=== PATIENT | female | born 1995 | race Caucasian/White ===

== ENCOUNTER 2023-08-13 16:50 | Emergency (ER) | payer OTHER, SELFPAY ==
[2023-08-13 16:55] VITALS: BP 145/99; PULSE 103; RESP 18; TEMP 36.9; O2SAT 100; BMI 21.3
--- NOTE | 2023-08-13 17:03 | ECG_ITS ---
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
--- NOTE | 2023-08-13 17:07 | CT_ITS ---
The [address] [address] Patient Name: STANISLAW ELIZABETH MRN: [id number] date: 1995 Sex: F Assigned Patient Location: ER Current Patient Location: ER Accession/Order Number: [id number] Exam Date: 08/13/2023 17:33 Report Date: 08/13/2023 17:45 At the request of: KATY PRATT Procedure: CT head/brain wo con EXAM: CT head/brain wo con HISTORY: Dizziness COMPARISON: None. TECHNIQUE: Axial CT scans through the head were obtained without IV contrast administration. Dose reduction techniques were achieved by using: automated exposure control and/or adjustment of mA and /or kV according to patient size and/or use of iterative reconstruction technique. FINDINGS: There is no acute intracranial hemorrhage or abnormal extra-axial fluid collection. No mass effect or midline shift is seen. There is no evidence of large acute territorial infarction. There is no hydrocephalus. To the limit of CT, the posterior fossa appears unremarkable. The calvaria and extra cranial soft tissues are unremarkable. The visualized orbits show no abnormal mass. The visualized paranasal sinuses show no air-fluid level. Mastoid air cells are clear. CT/CT head/brain wo con IMPRESSION: Unremarkable CT brain performed without contrast. Electronically authenticated by: RENAY TREVIÑO Date: 08/13/2023 17:45
--- NOTE | 2023-08-13 17:07 | ED_ITS ---
HPI - Dizziness General Chief Complaint: Dizziness Stated Complaint: DIZZNESS Time Seen by Provider: 08/13/23 17:02 Source: patient Mode of arrival: Wheelchair Limitations: no limitations History of Present Illness HPI Narrative: patient is a 28-year-old female presents to the emergency department for the evaluation of lightheadedness that began yesterday. Patient states she was at work today when she felt lightheaded as though she may pass out and got very nauseous. She has not had any loss of vision, peripheral paresthesias, vomiting or diarrhea. No recent flulike illness. She is not concerned for . No medications taken prior to arrival. She denies any sensation of spinning. Related Data Home Medications Medication Instructions Recorded Confirmed dextroamphetamine-amphetamine 10 10 mg PO DAILY 08/13/23 08/13/23 mg tablet Previous Rx's Medication Instructions Recorded ondansetron 4 mg disintegrating 4 mg PO Q6H PRN nausea and 08/13/23 tablet vomiting #12 tabs Allergies Allergy/AdvReac Type Severity Reaction Status Date / Time No Known Drug Allergies Allergy Verified 08/13/23 17:01 Review of Systems ROS Constitutional Denies: fever or chills Ears, nose, mouth, and throat Denies: throat pain or nasal congestion Cardiovascular Denies: chest pain Respiratory Denies: shortness of breath or cough Gastrointestinal Reports: nausea; Denies: vomiting or diarrhea Genitourinary Denies: painful urination Musculoskeletal Denies: back pain Integumentary/Breast Denies: rash Neurological Reports: dizziness; Denies: headache, numbness in extremities or weakness in extremities Hematologic/Lymphatic Denies: easy bruising Exam Narrative Exam Narrative: Gen.: Awake, alert, in no distress Head: Normocephalic, atraumatic ENT: Moist mucous membranes; bilateral tympanic membranes clear, no pharyngeal erythema Respiratory: No respiratory distress, lungs clear bilaterally Cardio: Regular rate and rhythm Gastrointestinal: Abdomen is soft, nondistended and nontender to palpation Extremities: Moves extremities equally, no injuries noted Psych: Normal mood and affect Neuro: No focal neuro deficit Skin: Warm, dry, intact Constitutional Vital Signs, click to edit/add: Last Vital Signs Temp 98.5 F 08/13/23 16:55 Pulse 103 H 08/13/23 16:55 Resp 18 08/13/23 16:55 BP 145/99 H 08/13/23 16:55 Pulse Ox 100 08/13/23 16:55 O2 Del Method Room Air 08/13/23 16:55 Course Vital Signs Vital signs: Vital Signs Temperature 98.5 F 08/13/23 16:55 Pulse Rate 103 H 08/13/23 16:55 Respiratory Rate 18 08/13/23 16:55 Blood Pressure 145/99 H 08/13/23 16:55 Pulse Oximetry 100 08/13/23 16:55 Oxygen Delivery Method Room Air 08/13/23 16:55 Temperature 98.5 F 08/13/23 16:55 Pulse Rate 103 H 08/13/23 16:55 Respiratory Rate 18 08/13/23 16:55 Blood Pressure 145/99 H 08/13/23 16:55 Pulse Oximetry 100 08/13/23 16:55 Oxygen Delivery Method Room Air 08/13/23 16:55 MDM - Dizziness MDM Narrative Medical decision making narrative: patient was treated with IV fluids, Zofran. CT of the brain is unremarkable and lab studies are also unremarkable. vital signs are normal in the Emergency Room. Patient is discharged home with a prescription for Zofran, increase fluids and follow-up with PCP. Return to the Emergency Room if symptoms change or worsen. Medical Records Attestation: I reviewed the patient's medical records. Lab Data Attestation: I reviewed the patient's lab results. Labs: Lab Results 08/13/23 Range/Units 17:10 WBC 8.8 (4.0-11.0) 10^3/uL RBC 4.35 (4.20-5.40) 10^6/uL Hgb 13.3 (12.0-16.0) g/dL Hct 39.2 (36.0-48.0) % MCV 90.1 (81.0-99.0) fL MCH 30.6 (26.7-34.0) pg MCHC 33.9 (29.9-35.2) g/dL RDW 11.8 (11.0-15.0) % Plt Count 276 (150-450) 10^3/uL MPV 10.1 (9.5-13.5) fL Neut % (Auto) 54.6 (43.0-75.0) % Lymph % (Auto) 36.7 (20.5-60.0) % [place] % (Auto) 6.0 (1.7-12.0) % Eos % (Auto) 1.8 (0.9-7.0) % Baso % (Auto) 0.8 (0.2-2.0) % Neut # (Auto) 4.8 (1.4-6.5) 10^3/uL Lymph # (Auto) 3.2 (1.2-3.8) 10^3/uL [place] # (Auto) 0.5 (0.3-0.8) 10^3/uL Eos # (Auto) 0.2 (0.0-0.7) 10^3/uL Baso # (Auto) 0.1 (0.0-0.1) 10^3/uL Abs Immat Gran (auto) 0.01 (0.00-0.03) 10^3/uL Imm/Tot Granulo (auto) 0.1 (0.0-0.5) % Sodium 135 L (136-145) mmol/L Potassium 3.4 L (3.5-5.1) mmol/L Chloride 102 (98-107) mmol/L Carbon Dioxide 27.4 (21.0-32.0) mmol/L Anion Gap 9.0 BUN 12.0 (7.0-18.0) mg/dL Creatinine 0.76 (0.55-1.02) mg/dL Est GFR ( Amer) >60 (>=60) Est GFR (Non-Af Amer) >60 (>=60) BUN/Creatinine Ratio 15.8 Glucose 95 (74-106) mg/dL Calcium 9.0 (8.5-10.1) mg/dL Total Bilirubin 0.2 (0.2-1.0) mg/dL AST 9 L (15-37) U/L ALT 12 L (14-59) U/L Alkaline Phosphatase 61 (46-116) U/L Total Protein 7.9 (6.4-8.2) g/dL Albumin 3.7 (3.4-5.0) g/dL Globulin 4.2 g/dL Albumin/Globulin Ratio 0.9 TSH 2.246 (0.358-3.740) uIU/mL Serum HCG, Qual Negative (NEGATIVE) Urine Color Lt. yellow (YELLOW) Urine Clarity Clear (CLEAR) Urine pH 7.0 (5.0-9.0) Ur Specific [place] 1.010 (1.005-1.025) Urine Protein Negative (NEG/TRACE) mg/dL Urine Glucose (UA) Negative (NEGATIVE) mg/dL Urine Ketones Negative (NEGATIVE) mg/dL Urine Occult Blood Negative (NEGATIVE) Urine Nitrite Negative (NEGATIVE) Urine Bilirubin Negative (NEGATIVE) Urine Urobilinogen 0.2 (0.2-1.0) EU/dL Ur Leukocyte Esterase Negative (NEGATIVE) Imaging Data CT scan - head: Attestation: I have reviewed the pertinent imaging results. Radiologist's impression: Procedure: CT head/brain wo con EXAM: CT head/brain wo con HISTORY: Dizziness COMPARISON: None. TECHNIQUE: Axial CT scans through the head were obtained without IV contrast administration. Dose reduction techniques were achieved by using: automated exposure control and/or adjustment of mA and /or kV according to patient size and/or use of iterative reconstruction technique. FINDINGS: There is no acute intracranial hemorrhage or abnormal extra-axial fluid collection. No mass effect or midline shift is seen. There is no evidence of large acute territorial infarction. There is no hydrocephalus. To the limit of CT, the posterior fossa appears unremarkable. The calvaria and extra cranial soft tissues are unremarkable. The visualized orbits show no abnormal mass. The visualized paranasal sinuses show no air-fluid level. Mastoid air cells are clear. IMPRESSION: Unremarkable CT brain performed without contrast. Electronically authenticated by: RENAY OVALLEU Date: 08/13/2023 17:45 ECG Data Attestation: I personally reviewed and interpreted this ECG as follows: (normal sinus rhythm at a rate of ninety-six, no acute ST elevation or ectopy. EKG reviewed by attending physician) ECG interpretation date: 08/13/23 Discharge Plan Discharge Chief Complaint: Dizziness Clinical Impression: Lightheadedness, Nausea Patient Disposition: Home, Self-Care Time of Disposition Decision: 18:21 Condition: Good Prescriptions / Home Meds: New ondansetron 4 mg tablet,disintegrating 4 mg PO Q6H PRN (Reason: nausea and vomiting) Qty: 12 0RF No Action dextroamphetamine-amphetamine 10 mg tablet 10 mg PO DAILY Instructions: Lightheadedness (ED) Stand Alone Forms: Portal Instructions Referrals: Physician,Non-Staff, MD [Primary Care Provider] - 1 week
[2023-08-13] MEDS: 0.9 % SODIUM CHLORIDE 1,000 ML 999 ML IV (17:16)
[2023-08-13] MEDS: ONDANSETRON PF 4 MG/2 ML VIAL IV (17:16)
[2023-08-13 17:20] VITALS: PULSE 89; RESP 18
[2023-08-13 17:26] LABS: Basophils Absolute Auto 0.1 10^3/uL (0.0-0.1); Basophils Percent Auto 0.8 % (0.2-2.0); Eosinophils Absolute Auto 0.2 10^3/uL (0.0-0.7); Eosinophils Percent Auto 1.8 % (0.9-7.0); Hematocrit 39.2 % (36.0-48.0); Hemoglobin 13.3 g/dL (12.0-16.0); Immature Granulocytes Abs Auto 0.01 10^3/uL (0.00-0.03); Immature Granulocytes Pct Auto 0.1 % (0.0-0.5); Lymphocytes Absolute Auto 3.2 10^3/uL (1.2-3.8); Lymphocytes Percent Auto 36.7 % (20.5-60.0); Mean Corpuscular HGB Conc 33.9 g/dL (29.9-35.2); Mean Corpuscular Hemoglobin 30.6 pg (26.7-34.0); Mean Corpuscular Volume 90.1 fL (81.0-99.0); Mean Platelet Volume 10.1 fL (9.5-13.5); Monocytes Absolute Auto 0.5 10^3/uL (0.3-0.8); Neutrophils Absolute Auto 4.8 10^3/uL (1.4-6.5); Neutrophils Percent Auto 54.6 % (43.0-75.0); Platelet Count 276 10^3/uL (150-450); Red Blood Count 4.35 10^6/uL (4.20-5.40); Red Cell Distribution Width 11.8 % (11.0-15.0); White Blood Count 8.8 10^3/uL (4.0-11.0)
[2023-08-13 17:27] LABS: Bilirubin Urine NEGATIVE (NEGATIVE); Blood Urine NEGATIVE (NEGATIVE); Clarity Urine CLEAR (CLEAR); Color Urine LT. YELLOW (YELLOW); Glucose Urine UA NEGATIVE (NEGATIVE); Ketones Urine NEGATIVE (NEGATIVE); Leukocyte Esterase Urine NEGATIVE (NEGATIVE); Nitrite Urine NEGATIVE (NEGATIVE); Protein Urine NEGATIVE (NEG/TRACE); Urobilinogen Urine 0.2 EU/dL (0.2-1.0)
[2023-08-13 17:30] VITALS: PULSE 89; RESP 13
[2023-08-13 17:31] LABS: Urine Microscopic Indicated NO
[2023-08-13 17:39] LABS: HCG Qualitative NEGATIVE (NEGATIVE)
[2023-08-13 17:41] LABS: Alanine Aminotransferase 12 U/L (14-59); Albumin Globulin Ratio 0.9; Albumin Level 3.7 g/dL (3.4-5.0); Alkaline Phosphatase 61 U/L (46-116); Aspartate Amino Transferase 9 U/L (15-37); BUN Creatinine Ratio 15.8; Bilirubin Total 0.2 mg/dL (0.2-1.0); Carbon Dioxide 27.4 mmol/L (21.0-32.0); Chloride 102 mmol/L (98-107); Estimated GFR (African America >60 (>=60); Estimated GFR (Non-African Ame >60 (>=60); Globulin 4.2 g/dL; Glucose 95 mg/dL (74-106); Potassium 3.4 mmol/L (3.5-5.1); Sodium 135 mmol/L (136-145); Total Protein 7.9 g/dL (6.4-8.2)
[2023-08-13 17:49] LABS: Thyroid Stimulating Hormone 2.246 uIU/mL (0.358-3.740)
[2023-08-13 18:00] VITALS: PULSE 83; RESP 18
[2023-08-13 18:10] VITALS: PULSE 81; RESP 17
[2023-08-13 18:30] VITALS: PULSE 83; RESP 15
== END 2023-08-13 18:37 | disposition home or self-care (01) ==
PROVIDERS: Physician Assistant; Emergency Provider Emergency Medicine
DX: R42 Dizziness and giddiness (principal); R11.0 Nausea
CPT/HCPCS: 36415; 70450; 80053; 81003; 84443; 84703; 85025; 93005; 96361; 96374; 99285

== ENCOUNTER 2023-08-28 12:30 | Outpatient (OUT) | payer OTHER, SELFPAY | END 2023-08-28 12:31 | disposition home or self-care (01) | LOC: CARD 12:30 | PROVIDERS: Visit Provider Physician Assistant | DX: R55 Syncope and collapse (principal) | CPT/HCPCS: 93246 ==

== ENCOUNTER 2025-09-16 11:02 | Emergency (ER) | payer OTHER, SELFPAY ==
[2025-09-16 11:07] VITALS: BP 112/66; PULSE 106; TEMP 37.3; O2SAT 99; BMI 22.4
--- NOTE | 2025-09-16 11:39 | US_ITS ---
The [address] [address] Patient Name: STANISLAW ELIZABETH MRN: [id number] date: 1995 Sex: F Assigned Patient Location: ER Current Patient Location: ER Accession/Order Number: [id number] Exam Date: 09/16/2025 11:40 Report Date: 09/16/2025 12:35 At the request of: SHAYNA POWERS MD Procedure: US OB transvaginal ULTRASOUND OB TRANSVAGINAL COMPARISON: None CLINICAL DATA: patient with vaginal bleeding and cramping for the past day. Beta hCG 12. Transvaginal imaging was performed. The uterus appears to be normal in size. No focal myometrial abnormalities are seen. No gestational sac is identified. The endometrial lining measures 6-7 mm in thickness. The cervix is closed and measures approximately 3.8 cm in length. Both ovaries are seen. The right measures 3.0 x 2.3 x 1.8 cm. The left ovary measures approximately 4.8 x 1.5 x 1.9 cm. There are no adnexal cysts. There is documentation of ovarian blood flow. A trace amount of free fluid is seen at the posterior cul-de-sac. US/US OB transvaginal IMPRESSION: NO EVIDENCE OF INTRAUTERINE . CORRELATION WITH SERIAL BETA HCG IS RECOMMENDED ALONG THE REPEAT ULTRASOUND, WARRANTED. NO ADNEXAL CYSTS. Impression dictated by: Marylin Campos M.D. 09/16/2025 12:35 PM Dictation Location: [place] [address] Electronically authenticated by: [id number] Y Date: 09/16/2025 12:35
--- OUTSIDE RECORDS SUMMARY | 2025-09-16 11:54 | XMS_ITS | Encounter Summary ---
Author Organization [facility] Address [address] [place] [address] Care Team Providers Care Senior Computer Specialist Name Role Phone Clark Lainez MD Primary Care Provider [phone] Reason for Visit * ReasonOnset DateCommentsMed Upflxj4409/07/2025 Encounter Details DateTypeDepartmentCare Team (Latest Contact Info)Zyiqvthmqiq06/08/2025Refill [facility] [address] [facility] [address] [place] [id number] Marylin Rangel PA [address] [place] [address] [place] [address] Generalized anxiety disorder; Attention deficit disorder (ADD) in adult; Moderate recurrent major depression (HCC) Social History Tobacco UseTypesPacks/DayYears UsedDateSmoking Tobacco: NeverSmokeless Tobacco: NeverAlcohol UseStandard Drinks/WeekCommentsYes6 (1 standard drink = 0.6 oz pure alcohol)PHQ-2AnswerDate RecordedPatient Health Questionnaire-2 Kmjiq502 CommentsUnknownSex and Gender InformationValueDate RecordedSex Assigned at BirthNot on fileLegal LjiTfvjaa27/15/2023 6:42 PM EDTGender IdentityNot on fileSexual FaamqucmxdpCqljsyft67/14/2024 12:34 PM ESTdocumented as of this encounter Plan of Treatment DateTypeDepartmentCare Team (Latest Contact Info)Qvqwziqhstl36/16/2026 10:00 AM ESTAncillary Procedure [facility] [address] [place] [address] [place] [address] 10/15/2025 10:30 AM ESTInitial [facility] [address] [place] [address] [place] [address] documented as of this encounter Visit Diagnoses Diagnosis Generalized anxiety disorder Attention deficit disorder (ADD) in adult Moderate recurrent major depression (HCC) Major depressive disorder, recurrent episode, moderate documented in this encounter Care Teams Team MemberRelationshipSpecialtyStart DateEnd Date Clark Lainez MD [address] [facility] [address] [place] [address] PCP - GeneralFamily Medicine02/05/23documented as of this encounter
--- OUTSIDE RECORDS SUMMARY | 2025-09-16 11:55 | XMS_ITS | Clinical Summary ---
Author Organization [employer] [facility] tem Address [id number] [address] [place] [address] Care Team Providers Care Drying Oven Attendant Name Role Phone Unavailable Primary Care Provider Unavailabl e Allergies Active AllergyReactionsCriticalityNoted EqdpVyfeewioFfkefshhofr48/19/2023 Other Reaction(s): Vomiting, Vision Changes Social History Tobacco UseTypesPacks/DayYears UsedDateSmoking Tobacco: NeverSmokeless Tobacco: Never Tobacco Cessation:Counseling Given: Not Answered ChildcareAnswerDate WbkrpjizTqkzdioklGujsjnr63/12/2019EmploymentAnswerDate KtueehfjLfetksedtzBtzcpcq27/12/2019CommentsUnknownSex and Gender InformationValueDate RecordedSex Assigned at BirthNot on fileLegal SexFemale 05/05/2015 11:49 AM EDTGender IdentityNot on fileSexual OrientationNot on file Plan of Treatment Health MaintenanceDue DateLast DoneCommentsDepression Qfbujxkts62/29/2006Tobacco Dzjczzkpu93/29/2006dult BMI Umnapvdvj47/29/2012Pap Smear2015Influenza Syofwos71DTaP,Tdap and Td Vaccines (7 - Td or Tdap)09/12/2026 09/12/2016, 03/31/1999, 07/24/1995, Additional history exists Medical Devices Not on file
--- OUTSIDE RECORDS SUMMARY | 2025-09-16 11:55 | XMS_ITS | Encounter Summary ---
Author Organization [facility] Address [address] [place] [address] Care Team Providers Care Manufacturing Test Engineer Name Role Phone Clark Lainez MD Primary Care Provider [phone] Encounter Details DateTypeDepartmentCare Team (Latest Contact Info)Wmjrhjwtdhr48/18/2025Telephone [facility] [address] [place] [address] Sahil Mccauley DO [address] Tanisha Stewart, [facility] Social History Tobacco UseTypesPacks/DayYears UsedDateSmoking Tobacco: NeverSmokeless Tobacco: NeverAlcohol UseStandard Drinks/WeekCommentsYes6 (1 standard drink = 0.6 oz pure alcohol)PHQ-2AnswerDate RecordedPatient Health Questionnaire-2 Roinc240 CommentsUnknownSex and Gender InformationValueDate RecordedSex Assigned at BirthNot on fileLegal LinXiexwk92/15/2023 6:42 PM EDTGender IdentityNot on fileSexual YzvsjeggqsxCjqjitro23/14/2024 12:34 PM ESTdocumented as of this encounter Miscellaneous Notes * Telephone Encounter - Jocelyne Al LPN - 09/16/2025 10:40 AM EST Patient called the office and she states that she is bleeding really heavy and she is and early on she does not have her first appointment with us for a bit. Patient states that she is having the heavy bleeding and clotting. Patient advised to go to ER for eval and that we will order additional testing for the patient. PVU documented in this encounter Plan of Treatment DateTypeDepartmentCare Team (Latest Contact Info)Ysvrmbokxgk66/16/2026 10:00 AM ESTAncillary Procedure [facility] [address] [place] [address] 10/15/2025 10:30 AM ESTInitial [facility] [address] [place] [address] NameTypePriorityAssociated DiagnosesOrder SchedulehCG, quantitative, LabRoutine Positive urine test (HHS-HCC) Missed menses Bleeding in early (HHS-HCC) Expected: 09/16/2025 (Approximate), Expires: 03/17/2026documented as of this encounter Visit Diagnoses Diagnosis Positive urine test (HHS-HCC) Missed menses Bleeding in early (HHS-HCC) Unspecified hemorrhage in early , unspecified as to episode of care documented in this encounter Care Teams Team MemberRelationshipSpecialtyStart DateEnd Date Clark Lainez MD 112 [facility] [address] [place] [address] PCP - GeneralFamily Medicine02/05/23documented as of this encounter
--- OUTSIDE RECORDS SUMMARY | 2025-09-16 11:55 | XMS_ITS | Clinical Summary ---
Author Organization [facility] Address [address] [place] [address] Care Team Providers Care Cigar Making Machine Supervisor Name Role Phone Unavailable Primary Care Provider Unavailabl e Social History Tobacco UseTypesPacks/DayYears UsedDateSmoking Tobacco: Never AssessedUT Safety & EnvironmentAnswerDate RecordedFear of Current or Ex-PartnerNot on file 11/21/2023Emotionally AbusedNot on file11/21/2023hysically AbusedNot on file 11/21/2023Sexually AbusedNot on file11/21/2023hysically or Sexually AbusedNot on file11/21/2023CommentsUnknownSex and Gender InformationValueDate RecordedSex Assigned at BirthNot on fileLegal CfzFejukb97/30/2022 12:41 AM EDT Gender IdentityNot on fileSexual OrientationNot on file Plan of Treatment Not on file
--- OUTSIDE RECORDS SUMMARY | 2025-09-16 11:55 | XMS_ITS | Encounter Summary ---
Author Organization [facility] Address [address] [place] [address] Care Team Providers Care Clerical Administrative Assistant Name Role Phone Clark Lainez MD Primary Care Provider [phone] Encounter Details DateTypeDepartmentCare Team (Latest Contact Info)Kdxbwtkfwid87/16/2025Telephone [facility] [address] [place] [address] Sahil Mccauley DO [address] Tanisha Stewart, [facility] Social History Tobacco UseTypesPacks/DayYears UsedDateSmoking Tobacco: NeverSmokeless Tobacco: NeverAlcohol UseStandard Drinks/WeekCommentsYes6 (1 standard drink = 0.6 oz pure alcohol)PHQ-2AnswerDate RecordedPatient Health Questionnaire-2 Ipqce029 CommentsUnknownSex and Gender InformationValueDate RecordedSex Assigned at BirthNot on fileLegal RzcBghnhd28/15/2023 6:42 PM EDTGender IdentityNot on fileSexual JnxgtweiwemPvkjsdfu21/14/2024 12:34 PM ESTdocumented as of this encounter Miscellaneous Notes * Telephone Encounter - Jocelyne Al LPN - 09/14/2025 10:47 AM EST Patient called the office and she states just found out and she is on Trintellix and was not sure if ok to be on this or if needing to wean off. Spoke with provider and he states if she needs to stay on this then benefits outweigh risk and thatif she thinks can go off that we can wean her off of this. Patient was on Celexa with last and helped her get through. Patient states that she will do whatever he thinks is best. Patient was advised if she needs this then can stay on or we can wean off and try something else. Patient was advised that she will talk to spouse and return call to the office. documented in this encounter Plan of Treatment DateTypeDepartmentCare Team (Latest Contact Info)Dwurcmukgbg84/16/2026 10:00 AM ESTAncillary Procedure [facility] [address] [place] [address] 10/15/2025 10:30 AM ESTInitial [facility] [address] [place] [id number] documented as of this encounter Visit Diagnoses Not on filedocumented in this encounter Care Teams Team MemberRelationshipSpecialtyStart DateEnd Date Clark Lainez MD [address] [facility] [address] [place] [address] PCP - GeneralFamily Medicine02/05/23documented as of this encounter
--- OUTSIDE RECORDS SUMMARY | 2025-09-16 11:55 | XMS_ITS | Clinical Summary ---
Author Organization [facility] Address [address] [place] [address] Care Team Providers Care Test Eng Name Role Phone Clark Lainez MD Primary Care Provider [phone] Allergies Active AllergyReactionsCriticalityNoted ObkgIjtlviewIkpusvysatd00/19/2023 Other Reaction(s): Vomiting, Vision Changes Medications MedicationSigDispense QuantityRefillsLast FilledStart DateEnd DateStatus Tretinoin (Altreno) 0.05 % lotion Indications:Acne vulgarisApply thin layer to face at bedtime 45 g 1111/4Active clindamycin (Cleocin-T) 1 % lotion Indications:Acne vulgarisApply topically Daily Apply thin layer to affected areas on the body during flares 60 mL 1106/10/632554/6Active azelaic acid (Finacea) 15 % gel Indications:RosaceaApply 1 application topically in the morning and 1 application before bedtime. 60 g 1107//721812/6Active drospirenone-ethinyl estradiol (Zumandimine) 3-0.03 MG tablet Indications:Uses controlTAKE 1 TABLET BY MOUTH EVERY DAY 84 tablet 5Active ALPRAZolam (Xanax) 0.25 MG tablet Indications:Generalized anxiety disorderTake 1 tablet (0.25 mg) by mouth 2 (two) times a day as needed for anxiety 20 tablet /5Active amphetamine-dextroamphetamine (Adderall) 15 MG tablet Indications:Attention deficit disorder (ADD) in adultTake 1 tablet (15 mg) by mouth Daily 30 tablet 501/08/2026Active Vortioxetine HBr (Trintellix) 20 MG tablet Indications:Moderate recurrent major depression (HCC)Take 20 mg by mouth Daily 90 tablet tive ALPRAZolam (Xanax) 0.25 MG tablet Indications:Generalized anxiety disorderTake 1 tablet (0.25 mg) by mouth 2 (two) times a day as needed for anxiety 20 tablet Discontinued(Reorder) amphetamine-dextroamphetamine (Adderall) 15 MG tablet Indications:Attention deficit disorder (ADD) in adultTake 1 tablet (15 mg) by mouth Daily 30 tablet Discontinued(Reorder) Vortioxetine HBr (Trintellix) 20 MG tablet Indications:Moderate recurrent major depression (HCC)Take 20 mg by mouth Daily 90 tablet Discontinued(Reorder) Active Problems ProblemNoted DateDiagnosed KzmtLlcakdshtwagcrzfjwuu40/16/2025ttention deficit disorder (ADD) in adult06/14/20253923Apkndd04/19/2023eneralized anxiety disorder 04/17/2023Menstrual wqafilfe98/19/2023Moderate recurrent major depression 04/17/2023 Resolved Problems ProblemNoted DateDiagnosed DateResolved DateDifficulty ocdzjhrabnlyr57/19/2023 06/14/2025 Encounters DateTypeDepartmentCare LeycJqaezmtkvyu99/18/2025Telephone [facility] [address] [place] [address] Sahil Mccauley, DO 09/14/2025Telephone [facility] [address] [place] [address] Sahil Mccauley, DO 09/13/2025Telephone [facility] [address] [place] [address] Sahil Mccauley, DO 09/06/2025Refill [facility] [address] [facility] [address] [place] [address] Marylin Rangel PA Generalized anxiety disorder; Attention deficit disorder (ADD) in adult; Moderate recurrent major depression (HCC)08/13/2025Refill [facility] [address] [place] [phone] Sahil Mccauley DO Uses ifhpbnx5508/09/2025Refill [facility] [address] [facility] [address] [place] [phone] Marylin Rangel PA Moderate recurrent major depression (HCC)08/04/2025 11:35 AM ESTOffice Visit [facility] [address] [place] [address] [place] [phone] Sonia Wong MD Rhytides (Primary Dx)08/04/20254225Zaopne87/17/2025Refill [facility] [address] [facility] [address] [place] [phone] Marylin Rangel PA Generalized anxiety disorder; Attention deficit disorder (ADD) in adultfrom Last 3 Months Immunizations ImmunizationAdministration DatesNext UnuSHR5611/01/1993,1994DTP / HiB 1994DTaP, Rggjmceztud95/02/1999,07/24/1995Hep B, Adolescent or Pediatric 1994,1994,1994HiB, grnkugfwuhh20/25/1995,1994,1994 Influenza, injectable, quadrivalent, preservative free09/18/2017MMR03/31/1999, 06/07/1995OPV03/31/1999,1994,1994,1994Tdap111/13/2015Varicella 06/06/2017,04/30/2017 Family History Medical HistoryRelationNameCommentsNo Known ProblemsMotherRelationNameStatus CommentsFatherAliveMotherAliveSonAlive Social History Tobacco UseTypesPacks/DayYears UsedDateSmoking Tobacco: NeverSmokeless Tobacco: Never Tobacco Cessation:Counseling Given: Not Answered Alcohol UseStandard Drinks/WeekCommentsYes6 (1 standard drink = 0.6 oz pure alcohol)PHQ-2AnswerDate RecordedPatient Health Questionnaire-2 Zgaop317 CommentsUnknownSex and Gender InformationValueDate RecordedSex Assigned at BirthNot on fileLegal DpaEvayer60/15/2023 6:42 PM EDTGender IdentityNot on fileSexual DhhtdcsnuhcZjzkpmec99/14/2024 12:34 PM EST Last Filed Vital Signs Vital SignReadingTime TakenCommentsBlood Tvpxujul884/7406/14/2025 8:06 AM EDT Lrrim601806/14/2025 8:06 AM EDTTemperature--Respiratory Rikb521906/14/2025 8:06 AM EDTOxygen Idhnwyzfzh44%06/14/2025 8:06 AM EDTInhaled Oxygen Concentration-- Psvujq53 kg (143 lb 6.4 oz)06/14/2025 8:06 AM XHTCxmipz813.6 cm (5' 6 ) 06/14/2025 8:06 AM EDTBody Mass Index23.15006/14/2025 8:06 AM EDT Plan of Treatment DateTypeDepartmentCare Team (Latest Contact Info)Htiurahyfgh00/16/2026 10:00 AM ESTAncillary [place] [address] 10/15/2025 10:30 AM [place] [address] Health MaintenanceDue DateLast DoneCommentsPneumococcal Vaccine: Pediatrics (0 to 5 Years) and At-Risk Patients (6 to 64 Years) (1 of 2 - PCV)2013Pap Smear2015Cervical Cancer Nkpqnwdsw80/29/2024HPV/Yhibzt504COVID-19 Vaccine (1 - season)2025Influenza Vaccine (#1) Postponed from 05/31/2025 (Patient Refused) Insurance Care Teams Team MemberRelationshipSpecialtyStart DateEnd Date Clark Lainez MD [address] [facility] [address] [place] [address] PCP - GeneralFamily Medicine02/05/23
--- OUTSIDE RECORDS SUMMARY | 2025-09-16 11:55 | XMS_ITS | Encounter Summary ---
Author Organization [facility] Address [address] [place] [address] Care Team Providers Care Crystalizer Name Role Phone Clark Lainez MD Primary Care Provider [phone] Encounter Details DateTypeDepartmentCare Team (Latest Contact Info)Khtwveftnql03/15/2025Telephone [facility] [address] [place] [address] Sahil Mccauley DO [address] Tanisha Stewart, [facility] Social History Tobacco UseTypesPacks/DayYears UsedDateSmoking Tobacco: NeverSmokeless Tobacco: NeverAlcohol UseStandard Drinks/WeekCommentsYes6 (1 standard drink = 0.6 oz pure alcohol)PHQ-2AnswerDate RecordedPatient Health Questionnaire-2 Khlap970 CommentsUnknownSex and Gender InformationValueDate RecordedSex Assigned at BirthNot on fileLegal EneFfqlch31/15/2023 6:42 PM EDTGender IdentityNot on fileSexual BxtuliyijhbLboeeaoe13/14/2024 12:34 PM ESTdocumented as of this encounter Miscellaneous Notes * Telephone Encounter - Jocelyne Al LPN - 09/13/2025 4:43 PM EST Patient called the office and left a voicemail she is scheduled for annual appointment tomorrow andjust found out she is and wanting to know if should cancel or keep. Patient was advised that we can schedule her for her intake and dating ultrasound then after that we would schedule a follow up with Dr. Mccauley and then the following appointment would be annual and cultures. PVU and she was transferred to clerical to schedule, documented in this encounter Plan of Treatment DateTypeDepartmentCare Team (Latest Contact Info)Rfaselutyfo40/16/2026 10:00 AM ESTAncillary Procedure [facility] [address] [place] [phone] 10/15/2025 10:30 AM ESTInitial [facility] [address] [place] [phone] documented as of this encounter Visit Diagnoses Not on filedocumented in this encounter Care Teams Team MemberRelationshipSpecialtyStart DateEnd Date Clark Lainez MD [address] [facility] 110 [place] [address] PCP - GeneralFamily Medicine02/05/23documented as of this encounter
[2025-09-16 11:56] LABS: Hematocrit 37.3 % (36.0-48.0); Hemoglobin 12.8 g/dL (12.0-16.0); Immature Granulocytes Abs Auto 0.02 10^3/uL (0.00-0.03); Immature Granulocytes Pct Auto 0.3 % (0.0-0.5); Lymphocytes Absolute Auto 0.9 10^3/uL (1.2-3.8); Mean Corpuscular HGB Conc 34.3 g/dL (29.9-35.2); Mean Corpuscular Hemoglobin 31.3 pg (26.7-34.0); Mean Corpuscular Volume 91.2 fL (81.0-99.0); Platelet Count 218 10^3/uL (150-450); Red Blood Count 4.09 10^6/uL (4.20-5.40); White Blood Count 6.9 10^3/uL (4.0-11.0)
[2025-09-16 11:58] LABS: Glucose Urine UA NEGATIVE (NEGATIVE)
[2025-09-16 12:05] LABS: Cast Seen? NONE SEEN #/LPF (NONE SEEN); Crystals Seen? None Seen #/HPF (None Seen); Urine Culture Indicated NO
[2025-09-16 12:10] LABS: Alanine Aminotransferase 15 U/L (14-59); Albumin Globulin Ratio 1.1; Albumin Level 3.6 g/dL (3.4-5.0); Alkaline Phosphatase 75 U/L (46-116); Anion Gap 10.8; Aspartate Amino Transferase 11 U/L (15-37); Blood Urea Nitrogen 8.0 mg/dL (7.0-18.0); Calcium 8.8 mg/dL (8.5-10.1); Carbon Dioxide 28.1 mmol/L (21.0-32.0); Chloride 105 mmol/L (98-107); Estimated GFR (African America >60 (>=60 mL/min/1.73m^2); Estimated GFR (Non-African Ame >60 (>=60 mL/min/1.73m^2); Globulin 3.2 g/dL; Glucose 96 mg/dL (74-106); Potassium 3.9 mmol/L (3.5-5.1); Sodium 140 mmol/L (136-145); Total Protein 6.8 g/dL (6.4-8.2)
--- NOTE | 2025-09-16 12:20 | ED_ITS ---
HPI HPI - General Adult General Chief complaint: OB/Uterine Contractions Stated complaint: 6 WEEKS BLEEDING CRAMPING Time Seen by Provider: 09/16/25 11:34 Source: patient Mode of arrival: walk-in Limitations: no limitations History of Present Illness HPI narrative: The patient is a 30-year-old female who is for the third time after 2 successful with the age of her youngest is 3 years old. Patient is coming to the ER with a vaginal bleeding that started over the last few hours and it is almost as heavy as her menstruation Patient supposedly is 5 to 6 weeks she did not follow-up with her OB doctor yet She does have suprapubic cramping but no other concerns of nausea vomiting or any history of fall or trauma Related Data Allergies Allergy/AdvReac Type Severity Reaction Status Date / Time No Known Drug Allergies Allergy Verified 09/16/25 11:07 Opioid HPI Opioid Management Most Recent Opioid Data: Last Pain Scale 2 Today, 11:07 Review of Systems ROS Status of ROS 10 or more systems reviewed and unremark able except as noted in history and below PFSH PFSH Social History Little interest or pleasure in doing things: not at all Feeling down, depressed, or hopeless: not at all Exam Narrative Exam Narrative: Nurses notes and vital signs reviewed and patient is not hypoxic. General: Well-appearing and in no apparent distress. Skin: Warm, dry, no pallor noted. No rash. Head: Normocephalic, atraumatic. Neck: Supple, non-tender. Cardiovascular: Regular Rate and Rhythm without murmur, gallop or rub. Respiratory: No accessory muscle use or respiratory distress. Lungs are clear to auscultation, no wheezing, rales or rhonchi Chest Wall: no tenderness Back: No midline thoracic or lumbar vertebral tenderness. No CVA tenderness Musculoskeletal: normal ROM, no calf or popliteal tenderness, no lower extremity edema/swelling GI: Abdomen is soft, non-distended. Normal bowel sounds. No masses appreciated. No tenderness to palpation. No rebound, guarding, or rigidity noted. Neurological: A&O x4. No cranial nerve dysfunction observed. No truncal ataxia. Moves all extremities. Sensation intact. Psychiatric: Cooperative and interactive. Normal mood and affect. Constitutional Vital Signs, click to edit/add: Last Vital Signs Temp 99.2 F 09/16/25 11:07 Pulse 98 H 09/16/25 13:08 Resp 16 09/16/25 13:08 BP 118/82 09/16/25 13:08 Pulse Ox 99 09/16/25 13:08 O2 Del Method Room Air 09/16/25 11:07 Course Vital Signs Vital signs: Vital Signs Temperature 99.2 F 09/16/25 11:07 Pulse Rate 106 H 09/16/25 11:07 Respiratory Rate 16 09/16/25 11:07 Blood Pressure 112/66 09/16/25 11:07 Pulse Oximetry 99 09/16/25 11:07 Oxygen Delivery Method Room Air 09/16/25 11:07 Temperature 99.2 F 09/16/25 11:07 Pulse Rate 98 H 09/16/25 13:08 Respiratory Rate 16 09/16/25 13:08 Blood Pressure 118/82 09/16/25 13:08 Pulse Oximetry 99 09/16/25 13:08 Oxygen Delivery Method Room Air 09/16/25 11:07 Medical Decision Making [facility] Narrative Medical decision making narrative: With the patient presentation the high suspicion of miscarriage specially with the heaviness of the bleeding right now the patient hCG level is 18 and her ultrasound shows no intrauterine Clinical examination otherwise benign and the patient is estimated to be less than 8 weeks The patient though instructed that she still need to follow-up with her OB doctor to make sure that further bleeding continue and another hCG level can be obtained The patient to follow-up with the primary care within 2 to 3 days and to come back to the ER in case of any worsening of the current symptoms or any new symptoms or concerns Lab Data Labs: Lab Results 09/16/25 09/16/25 Range/Units 11:46 11:50 WBC 6.9 (4.0-11.0) 10^3/uL RBC 4.09 L (4.20-5.40) 10^6/uL Hgb 12.8 (12.0-16.0) g/dL Hct 37.3 (36.0-48.0) % MCV 91.2 (81.0-99.0) fL MCH 31.3 (26.7-34.0) pg MCHC 34.3 (29.9-35.2) g/dL RDW 12.1 (11.0-15.0) % Plt Count 218 (150-450) 10^3/uL MPV 9.8 (9.5-13.5) fL Neut % (Auto) 75.5 H (43.0-75.0) % Lymph % (Auto) 13.6 L (20.5-60.0) % Porter % (Auto) 8.0 (1.7-12.0) % Eos % (Auto) 1.9 (0.9-7.0) % Baso % (Auto) 0.7 (0.2-2.0) % Neut # (Auto) 5.2 (1.4-6.5) 10^3/uL Lymph # (Auto) 0.9 L (1.2-3.8) 10^3/uL Porter # (Auto) 0.6 (0.3-0.8) 10^3/uL Eos # (Auto) 0.1 (0.0-0.7) 10^3/uL Baso # (Auto) 0.1 (0.0-0.1) 10^3/uL Abs Immat Gran (auto) 0.02 (0.00-0.03) 10^3/uL Imm/Tot Granulo (auto) 0.3 (0.0-0.5) % Sodium 140 (136-145) mmol/L Potassium 3.9 (3.5-5.1) mmol/L Chloride 105 (98-107) mmol/L Carbon Dioxide 28.1 (21.0-32.0) mmol/L Anion Gap 10.8 BUN 8.0 (7.0-18.0) mg/dL Creatinine 0.64 (0.55-1.02) mg/dL Est GFR ( Amer) >60 (>=60 mL/min/1.73m^2) Est GFR (Non-Af Amer) >60 (>=60 mL/min/1.73m^2) BUN/Creatinine Ratio 12.5 Glucose 96 (74-106) mg/dL Calcium 8.8 (8.5-10.1) mg/dL Total Bilirubin 0.2 (0.2-1.0) mg/dL AST 11 L (15-37) U/L ALT 15 (14-59) U/L Alkaline Phosphatase 75 (46-116) U/L Total Protein 6.8 (6.4-8.2) g/dL Albumin 3.6 (3.4-5.0) g/dL Globulin 3.2 g/dL Albumin/Globulin Ratio 1.1 HCG, Quant 12 mIU/mL Urine Color Lt. yellow (YELLOW) Urine Clarity Clear (CLEAR) Urine pH 6.0 (5.0-9.0) Ur Specific [place] <=1.005 A (1.005-1.025) Urine Protein Negative (NEG/TRACE) mg/dL Urine Glucose (UA) Negative (NEGATIVE) mg/dL Urine Ketones Negative (NEGATIVE) mg/dL Urine Occult Blood Moderate A (NEGATIVE) Urine Nitrite Negative (NEGATIVE) Urine Bilirubin Negative (NEGATIVE) Urine Urobilinogen 0.2 (0.2-1.0) EU/dL Ur Leukocyte Esterase Negative (NEGATIVE) Urine RBC 5-10 A (0-2) #/HPF Urine WBC None seen (NONE SEEN) #/HPF Ur Squamous Epith Cells Few A (NONE/RARE) #/LPF Urine Crystals None seen (None Seen) #/HPF Urine Bacteria Trace A (NONE SEEN) #/HPF Urine Casts None seen (NONE SEEN) #/LPF Urine Mucus None seen (NONE SEEN) Ur Culture Indicated? No Blood Type B Positive Antibody Screen Negative Discharge Plan Discharge Chief Complaint: OB/Uterine Contractions Clinical Impression: Miscarriage Patient Disposition: Home, Self-Care Time of Disposition Decision: 13:05 Condition: Good Mode of Transportation: Private Vehicle Print Language: [place] Instructions: Miscarriage (ED) Referrals: Sahil Mccauley DO [Physician, [employer]] - 1 week DEISI GRUBER [Primary Care Provider, Family Practice] - 1 week Discharge Date/Time: 09/16/25 13:12
[2025-09-16 13:08] VITALS: BP 118/82; PULSE 98; O2SAT 99
== END 2025-09-16 13:12 | disposition home or self-care (01) ==
PROVIDERS: Emergency Provider Emergency Medicine; PCP Physician Assistant
DX: O03.9 Complete or unspecified spontaneous abortion without complication (principal)
CPT/HCPCS: 36415; 76817; 80053; 81001; 84702; 85025; 86850; 86900; 86901; 99284